=== PATIENT | female | born 1940 | race Caucasian/White ===

== ENCOUNTER 2017-05-01 08:58 | Outpatient (CLI) | payer MEDICARE | END 2017-05-01 08:59 | disposition home or self-care (01) | LOC: BICMAMMO 08:58 | PROVIDERS: ATTEND Internal Medicine | DX: Z12.31 Encounter for screening mammogram for malignant neoplasm of breast (principal) | CPT/HCPCS: 77063; 77067 ==

== ENCOUNTER 2018-05-05 10:24 | Outpatient (CLI) | payer MEDICARE | END 2018-05-05 10:25 | disposition home or self-care (01) | LOC: BICMAMMO 10:24 | PROVIDERS: ATTEND Internal Medicine | DX: Z12.31 Encounter for screening mammogram for malignant neoplasm of breast (principal) | CPT/HCPCS: 77063; 77067 ==

== ENCOUNTER 2018-05-11 09:15 | Day surgery (SDC) | payer MEDICARE ==
[2018-05-08 13:11] VITALS: BMI 26.5
--- NOTE | 2018-05-11 12:45 | OP ---
DATE OF PROCEDURE: 05/11/2018 INDICATIONS FOR PROCEDURE: Prior history of colonic polyps (prior colonoscopy with recommendations to repeat in 5 years with presumed adenomatous polyp). PROCEDURE PERFORMED: Colonoscopy with polypectomy/biopsy. DESCRIPTION OF PROCEDURE: After the risks and benefits of the procedure were explained to the patient including risks of bleeding, infection, perforation, reactions to anesthesia, aspiration and/or pain, informed consent was obtained. The patient was taken to the endoscopy suite, where deep sedation was administered via propofol and anesthesia support. Once adequate sedation was achieved, a rectal examination was performed followed by introduction of the standard colonoscope into the rectum and advanced to the terminal ileum with some difficulty, but was able to achieve cecal intubation with reduction of the scope. The quality of the prep was good to excellent and the patient tolerated the procedure well with no immediate perioperative complications. Upon completion of the procedure, all equipment was removed from the patient and the patient was taken to the Day Stay in satisfactory condition. FINDINGS: Digital rectal exam, normal external findings. Colon findings: Normal-appearing mucosa was seen in the terminal ileum as well as at the ileocecal valve and appendiceal orifice. Normal-appearing mucosa was also seen within the cecum. Numerous small and large mouth diverticula were seen in the ascending colon without any evidence of associated erythema or colonic stenosis. Normal-appearing mucosa was seen in the transverse and descending colons. Again, more small to large mouth diverticula were seen in the distal descending and sigmoid colons, although, not as severe as the right-sided colonic diverticulosis. Two polyps measuring 3 mm in size were seen in the rectum and completely removed with Jumbo biopsy forceps. They were retrieved and placed in a specimen jar for evaluation. On rectal retroflexion, small to medium-sized internal hemorrhoids were noted. IMPRESSION: 1. [id number] right-sided and left-sided diverticulosis. 2. Two 3 mm rectal polyps, status post Jumbo biopsy forceps. 3. Medium-sized internal hemorrhoids. RECOMMENDATIONS: 1. We will follow up on the biopsy results with repeat colonoscopy interval depending on pathology report. 2. Would recommend a higher fiber diet given history of constipation and [id number] pancolonic diverticulosis. 3. Would have the patient follow up in the GI clinic in 3 weeks for further followup of her constipation and discussion of pathology results. Job ID: [id number]
[2018-05-11] MEDS ORDERED: Esmolol 100 MG/10 ML VIAL ONE (14:59)
[2018-05-11] MEDS ORDERED: Lidocaine 1% PF 5 ML VIAL ONE (14:59)
[2018-05-11] MEDS ORDERED: PROPOFOL 200 MG/20 ML VIAL ONE (14:59)
== END 2018-05-11 13:23 | disposition home or self-care (01) ==
LOC: SDC 09:15
PROVIDERS: ATTEND Internal Medicine
PROC: 0DBP8ZX Excision of Rectum, Via Natural or Artificial Opening Endoscopic, Diagnostic (ICD-10-PCS; principal; 2018-05-11)
DX: Z12.11 Encounter for screening for malignant neoplasm of colon (principal); K62.1 Rectal polyp; K57.30 Diverticulosis of large intestine without perforation or abscess without bleeding; K64.8 Other hemorrhoids; I10 Essential (primary) hypertension; E78.00 Pure hypercholesterolemia, unspecified; M19.90 Unspecified osteoarthritis, unspecified site; Z86.010 Personal history of colon polyps; Z90.710 Acquired absence of both cervix and uterus; Z79.899 Other long term (current) drug therapy; Z98.890 Other specified postprocedural states
CPT/HCPCS: 88305; J2001; J2704

== ENCOUNTER 2018-10-06 11:39 | Outpatient (CLI) | payer MEDICARE | END 2018-10-06 11:40 | disposition home or self-care (01) | LOC: ULT 11:39 | PROVIDERS: ATTEND Internal Medicine | DX: R01.1 Cardiac murmur, unspecified (principal); I08.8 Other rheumatic multiple valve diseases | CPT/HCPCS: 80048; 93306 ==

== ENCOUNTER 2019-05-14 10:56 | Outpatient (CLI) | payer MEDICARE ==
--- NOTE | 2019-05-14 11:17 | MMO ---
Bilateral MAMMO Bilat Screen [facility]. CLINICAL HISTORY: Patient is 78 years old and is seen for screening. The patient has the following family history of breast cancer: cousin female, malignant (generic). The patient has no personal history of cancer. VIEWS: The views performed were: bilateral craniocaudal with tomosynthesis and bilateral mediolateral oblique with tomosynthesis. FILMS COMPARED: The present examination has been compared to prior imaging studies performed at [facility] on 05/01/2017 and 05/05/2018, and at [facility] on 05/11/2008 and 09/30/2012. This study has been interpreted with the assistance of computer-aided detection. MAMMOGRAM FINDINGS: There are scattered fibroglandular densities. There are vascular calcifications seen in both breasts. There are no suspicious masses, suspicious calcifications, or new areas of architectural distortion. IMPRESSION: A ROUTINE FOLLOW-UP MAMMOGRAM IN 1 YEAR IS RECOMMENDED. THE RESULTS OF THIS EXAM WERE SENT TO THE PATIENT. ACR BI-RADS Category 2 - Benign finding MAMMOGRAPHY NOTE: 1. A negative mammogram report should not delay a biopsy if a dominant of clinically suspicious mass is present. 2. Approximately 10% to 15% of breast cancers are not detected by mammography. 3. Adenosis and dense breasts may obscure an underlying neoplasm. Reported by: KIRSTEN CASTELLANOS MD Electonically Signed: [id number]
== END 2019-05-14 10:57 | disposition home or self-care (01) ==
LOC: BICMAMMO 10:56
PROVIDERS: ATTEND Internal Medicine
DX: Z12.31 Encounter for screening mammogram for malignant neoplasm of breast (principal); Z80.3 Family history of malignant neoplasm of breast
CPT/HCPCS: 77063; 77067

== ENCOUNTER 2020-10-02 08:59 | Outpatient (CLI) | payer MEDICARE | END 2020-10-02 09:00 | disposition home or self-care (01) | LOC: BICRAD 08:59 | PROVIDERS: ATTEND Internal Medicine | DX: M89.8X1 Other specified disorders of bone, shoulder (principal) ==

== ENCOUNTER 2024-11-02 08:00 | Outpatient (CLI) | payer MEDICARE, OTHER | END 2024-11-02 08:01 | disposition home or self-care (01) | LOC: BICMAMMO 08:00 | PROVIDERS: ATTEND Internal Medicine | DX: Z12.31 Encounter for screening mammogram for malignant neoplasm of breast (principal); Z80.3 Family history of malignant neoplasm of breast | CPT/HCPCS: 77063; 77067 ==

== ENCOUNTER 2024-11-18 13:47 | Emergency (ER) | payer MEDICARE, OTHER ==
[2024-11-18] MEDS ORDERED: Acetaminophen 500 MG TAB ONE (14:43)
[2024-11-18 14:47] LABS: #Basophils 0.06 10x3/uL (0.0-0.2); #Eosinophils 0.09 10x3/uL (0.0-0.7); #Monocytes 1.03 10x3/uL (0.11-0.59); #Neutrophils 9.07 10x3/uL (1.40-6.50); %Basophils 0.5 % (0.0-1.0); %Eosinophils 0.8 % (0.0-10.0); %Lymphocytes 5.9 % (21.0-51.0); %Monocytes 9.4 % (0.0-10.0); %Neutrophils 82.9 % (42.0-75.0); Hematocrit 38.1 % (36.0-47.0); Hemoglobin 12.7 g/dL (12.0-16.0); Mean Corpuscular Hemoglobin 30.1 pg (27.0-31.0); Mean Corpuscular Volume 90.3 fL (78.0-98.0); Platelet Count 259 10x3/uL (130-400); Red Blood Cell (RBC) Count 4.22 mill/uL (4.20-5.40); White Blood Cell (WBC) Count 10.96 10x3/uL (4.8-10.8)
[2024-11-18 15:11] LABS: ALT (SGPT) 22 U/L (Less than 34); AST (SGOT) 27 U/L (11-34); Albumin 3.8 g/dL (3.1-4.5); Alkaline Phosphatase 95 U/L (40-110); Anion Gap 14 mmol/L (10-20); BUN (Urea Nitrogen) 21 mg/dL (9.8-20.1); Bilirubin, Total 0.4 mg/dL (0.3-1.2); Calc. Creatinine Clearance 0 mL/min (70-130); Calcium 9.9 mg/dL (7.8-10.44); Carbon Dioxide 21 mmol/L (23-31); Chloride 106 mmol/L (98-107); Globulin 3.2 g/dL (2.4-3.5); Glucose 134 mg/dL (83-110); Potassium 3.9 mmol/L (3.5-5.1); Sodium 137 mmol/L (136-145)
== END 2024-11-18 15:41 | disposition home or self-care (01) ==
LOC: ERS 13:47
DX: I10 Essential (primary) hypertension (principal)
CPT/HCPCS: 71045; 80053; 85025; 93005